=== PATIENT | male | born 1955 | race Caucasian/White ===

== ENCOUNTER 2021-04-21 08:19 | Day surgery (SDC) | payer MEDICARE ==
[~2021-04-21] VITALS: Ht 172.7 cm; Wt 88.9 kg
[~2021-04-21 08:19] MED LIST: 0.9%NACL 1000ML 1,000 ML IV ONE; ASPI-556 PO; DILT300C33 PO; ESOM20CA31 PO; EZET10TA13 PO; FENO145T PO; LEVO75TA4 PO; MORPHINE PUMP; MULT-40 PO; NEBI20TA2 PO; OMEG1CAP31 PO; PRED5TAB PO; TEST75GE TD
[2021-04-21 09:20] VITALS: BP 127/73
[2021-04-21] MEDS ORDERED: ZINC220T4 PO (09:37)
[2021-04-21] MEDS ORDERED: BUSP10TA3 PO (09:37)
[2021-04-21] MEDS ORDERED: CHOL500045 PO (09:37)
[2021-04-21] MEDS ORDERED: RIOC2TAB PO (09:37)
[2021-04-21] MEDS ORDERED: OXYC1TAB10 PO (09:37)
[2021-04-21] MEDS ORDERED: APIX5TAB PO (09:37)
[2021-04-21] MEDS ORDERED: TREP2.5T PO (09:37)
[2021-04-21] MEDS ORDERED: QUET50TA22 PO (09:37)
[2021-04-21] MEDS ORDERED: MAGN400T40 PO (09:37)
[2021-04-21] MEDS ORDERED: MACI10TA PO (09:37)
[2021-04-21] MEDS ORDERED: PROPOFOL 10 MG/ML 20ML VIAL IV ONE (10:09)
[2021-04-21 10:55] VITALS: BP 112/63
[2021-04-21 11:00] VITALS: BP 111/68
[2021-04-21 11:05] VITALS: BP 129/87
[2021-04-21 11:20] VITALS: BP 126/86
[2021-04-21 11:40] VITALS: BP 132/88
== END 2021-04-21 11:50 | disposition home or self-care (01) ==
LOC: DAH 08:19 → ENDO 08:19
PROVIDERS: ATTEND Internal Medicine
DX: K92.1 Melena (principal); Z20.822 Contact with and (suspected) exposure to COVID-19; K22.70 Barrett's esophagus without dysplasia; K44.9 Diaphragmatic hernia without obstruction or gangrene; K64.2 Third degree hemorrhoids; K57.30 Diverticulosis of large intestine without perforation or abscess without bleeding; K31.89 Other diseases of stomach and duodenum; E78.5 Hyperlipidemia, unspecified; I27.0 Primary pulmonary hypertension; E78.00 Pure hypercholesterolemia, unspecified; Z98.890 Other specified postprocedural states; Z90.81 Acquired absence of spleen; Z86.711 Personal history of pulmonary embolism; Z79.01 Long term (current) use of anticoagulants; Z79.82 Long term (current) use of aspirin
CPT/HCPCS: 43239; 45378; 87635; A4215 ×2; A4221; A4222; A4223; A4606; A4620; A4663; C9803; J2704; J7030

== ENCOUNTER 2021-04-22 05:54 | Day surgery (SDC) | payer MEDICARE ==
[~2021-04-22] VITALS: Ht 172.7 cm; Wt 88.9 kg
[2021-04-22] VITALS (9 sets, daily range): BP systolic 97–120; BP diastolic 56–74
[~2021-04-22 05:54] MED LIST changes: -0.9%NACL 1000ML 1,000 ML IV ONE; +APIX5TAB PO; +BUSP10TA3 PO; +CHOL500045 PO; -DILT300C33 PO; +MACI10TA PO; +MAGN400T40 PO; -NEBI20TA2 PO; +OXYC1TAB10 PO; +QUET50TA22 PO; +RIOC2TAB PO; +TREP2.5T PO; +ZINC220T4 PO
[2021-04-22] MEDS ORDERED: 0.9%NACL 1000ML 1,000 ML IV ONE (06:14)
[2021-04-22] MEDS ORDERED: LIDOCAINE HCL 1% 20 ML VIAL ONE (07:24)
[2021-04-22] MEDS ORDERED: PROPOFOL 10 MG/ML 20ML VIAL IV ONE (07:24)
[2021-04-22] MEDS ORDERED: FENTANYL CITRATE PF 50 MCG/1 ML 2ML VIAL ONE (07:25)
== END 2021-04-22 08:20 | disposition home or self-care (01) ==
LOC: DAH 05:54 → ENDO 05:54
PROVIDERS: ATTEND Internal Medicine
DX: K92.1 Melena (principal); K57.30 Diverticulosis of large intestine without perforation or abscess without bleeding; K63.5 Polyp of colon; K62.1 Rectal polyp; K22.70 Barrett's esophagus without dysplasia; I27.0 Primary pulmonary hypertension; E78.00 Pure hypercholesterolemia, unspecified; Z79.899 Other long term (current) drug therapy; Z79.82 Long term (current) use of aspirin; Z79.01 Long term (current) use of anticoagulants; Z98.890 Other specified postprocedural states; Z86.711 Personal history of pulmonary embolism
CPT/HCPCS: 45380; A4215 ×2; A4221; A4222; A4223; A4606; A4620; A4657; A4663; J2704; J3010; J7030